=== PATIENT | male | born 1985 | race Caucasian/White ===

== ENCOUNTER 2017-12-03 08:02 | Emergency (ER) | payer OTHER ==
[~2017-12-03] VITALS: Ht 175.3 cm; Wt 90.7 kg
[~2017-12-03 08:02] MED LIST: FLEXERIL PO; HYDROCODON-ACE1 EAC8 PO; NOHOMEMEDICATIONS
[2017-12-03 08:11] VITALS: BP 169/97
[2017-12-03] MEDS ORDERED: ULTRAM 50MG TAB50 MG PO (08:29)
== END 2017-12-03 08:43 | disposition home or self-care (01) ==
LOC: M.ERS 08:02
DX: S60.221A Contusion of right hand, initial encounter (principal); F17.210 Nicotine dependence, cigarettes, uncomplicated; X58.XXXA Exposure to other specified factors, initial encounter; Y93.89 Activity, other specified; Y92.89 Other specified places as the place of occurrence of the external cause; Y99.8 Other external cause status